=== PATIENT | female | born 1970 | race African-American/Black ===

== ENCOUNTER 2018-01-17 21:21 | Emergency (ER) | payer OTHER ==
[2018-01-18] MEDS ORDERED: CEPHALEXIN 500 MG CAP PO
[2018-01-18] MEDS: traMADol 50 MG TAB PO (01:07)
[2018-01-18] MEDS: CLINDAMYCIN 150 MG CAP PO (01:07)
== END 2018-01-18 01:19 | disposition home or self-care (01) ==
LOC: M ED 01-18 01:19
DX: L03.011 Cellulitis of right finger (principal)
CPT/HCPCS: 73140